=== PATIENT | female | born 1990 | race Caucasian/White ===

== ENCOUNTER 2020-06-17 08:47 | Outpatient (REF) | payer OTHER, SELFPAY ==
[2020-06-17 14:16] LABS: CT PCR NOT DETECTED (Not Detect.); NG PCR NOT DETECTED (Not Detect.)
[2020-06-18 09:31] LABS: BV Int Neg Control Negative (Negative); BV Int Pos Control Positive (Positive)
== END 2020-06-17 08:48 | disposition home or self-care (01) ==
LOC: HO.LAB 08:47
PROVIDERS: PCP Pediatrics; Visit Provider Obstetrics & Gynecology
DX: N76.0 Acute vaginitis (principal); B96.89 Other specified bacterial agents as the cause of diseases classified elsewhere; R87.610 Atypical squamous cells of undetermined significance on cytologic smear of cervix (ASC-US); R87.810 Cervical high risk human papillomavirus (HPV) DNA test positive
CPT/HCPCS: 87480; 87491; 87510; 87591; 87660

== ENCOUNTER 2020-07-17 08:51 | Outpatient (REF) | payer OTHER, SELFPAY | END 2020-07-17 08:52 | disposition home or self-care (01) | LOC: HO.LAB 08:51 | PROVIDERS: PCP Nurse Practitioner Family; Visit Provider Obstetrics & Gynecology | DX: R87.610 Atypical squamous cells of undetermined significance on cytologic smear of cervix (ASC-US) (principal); R87.810 Cervical high risk human papillomavirus (HPV) DNA test positive; N76.0 Acute vaginitis; B96.89 Other specified bacterial agents as the cause of diseases classified elsewhere; F17.200 Nicotine dependence, unspecified, uncomplicated | CPT/HCPCS: 57454; 81025; 88305 ==

== ENCOUNTER → 2020-08-05 12:45 | Outpatient (BNVA) | payer OTHER, SELFPAY | PROVIDERS: PCP Nurse Practitioner Family; Visit Provider Obstetrics & Gynecology | DX: Z76.89 Persons encountering health services in other specified circumstances (principal) ==

== ENCOUNTER 2020-11-22 10:44 | Emergency (ER) | payer MEDICAID, SELFPAY ==
--- NOTE | ~2020-11-22 | US_ITS ---
EXAMINATION: OBSTETRICAL ULTRASOUND, FIRST TRIMESTER HISTORY: 30-year-old with the amenorrhea Suprapubic pain LMP: 09/21/2020 COMPARISON: None in this TECHNIQUE: Real time transabdominal imaging with color and M-mode Doppler. FINDINGS: A single, intrauterine gestational sac with the mean sac diameter of 1.1 cm c/w 5.6wks is noted. Normal yolk sac. No definitive embryonic pole. This can be consistent with GA. Both maternal ovaries are seen and appear normal. Left ovary contains an anechoic cyst 3.5 x 2.8 x 2.4 cm. GESTATIONAL AGE: 1. GA from LMP: 8.6 wks 2. GA from AUA: 5.6 wks ESTIMATED DATE OF DELIVERY: 1. MAURICE from LMP: 06/28/2021 2. MAURICE from AUA: 07/19/2021 US/US OB pelvic and transvaginal IMPRESSION: 1. Single intrauterine gestational sac 2. Mean sac diameter is consistent with 5.6 weeks of gestation 3. No visible embryonic pole 4. Normal yolk sac 5. Normal ovaries. No free fluid in the cul-de-sac Thank you very much for this referral.
[2020-11-22 12:07] VITALS: BP 128/72; PULSE 90; RESP 18; TEMP 36.4; O2SAT 96
[2020-11-22 13:38] LABS: MANUAL DIFF FLAG NO
[2020-11-22] MEDS: Acetaminophen 325 MG TABLET 975 MG PO (13:43)
[2020-11-22 13:45] LABS: Glucose Urine UA NEG (NEG); Leukocyte Esterase Urine NEG (NEG); Nitrite Urine NEG (NEG); Specific Gravity - Urine 1.025 (1.005-1.025); Urine Blood NEG (NEG); Urine Ketones NEG (NEG); Urine Protein NEG (NEG-TRACE)
[2020-11-22 13:47] LABS: Basophils Percent Auto 0.3 % (0-2); Eosinophils Absolute Auto 0.3 X10*3/uL (0.0-0.4); Eosinophils Percent Auto 3.4 % (0-4); Hematocrit 41.2 % (37-47); Hemoglobin 13.4 g/dl (12.0-16.0); Imm Gran Abs Auto 0.02 X10*3/uL (0.00-0.03); Imm Gran Pct Auto 0.2 % (0.0-0.4); Lymphocytes Absolute Auto 1.5 X10*3/uL (1.2-4.9); Lymphocytes Percent Auto 16.5 % (20-40); Mean Corpuscular HGB Conc 32.5 g/dl (31.0-35.0); Mean Corpuscular Hemoglobin 30.1 pg (27.0-33.0); Mean Corpuscular Volume 92.6 fL (80-98); Mean Platelet Volume 9.8 fL (9.4-12.3); Monocytes Absolute Auto 0.4 X10*3/uL (0.1-1.2); Monocytes Percent Auto 4.1 % (2-11); Neutrophils Absolute Auto 6.8 X10*3/uL (2.0-8.3); Neutrophils Percent Auto 75.5 % (45-73); Platelet Count 376 X10*3/uL (160-400); Red Blood Count 4.45 X10*6/uL (4.20-5.50); Red Cell Distribution Width 12.2 % (11.0-16.0)
[2020-11-22 13:49] LABS: UPreg QC Valid YES; Urine Pregnancy POSITIVE (NEGATIVE)
[2020-11-22 13:50] LABS: Appearance Urine CLEAR; Color Urine YELLOW; Prothrombin Time 12.1 SEC (10.8-13.0)
[2020-11-22 14:16] LABS: Alanine Aminotransferase 22 U/L (0-31); Albumin Level 4.6 g/dL (3.5-5.0); Alkaline Phosphatase 64 U/L (39-117); Aspartate Amino Transferase 20 U/L (5-31); Bilirubin Direct 0.2 mg/dL (0.0-0.5); Bilirubin Total 0.6 mg/dL (0.0-1.0); Magnesium 2.2 mg/dL (1.6-2.6); Total Protein 7.7 g/dL (6.5-8.0)
[2020-11-22 14:18] LABS: Alanine Aminotransferase 22 U/L (0-31); Albumin Level 4.5 g/dL (3.5-5.0); Alkaline Phosphatase 62 U/L (39-117); Anion Gap 16 (12-20); Aspartate Amino Transferase 20 U/L (5-31); Bilirubin Total 0.6 mg/dL (0.0-1.0); Blood Urea Nitrogen 9 mg/dL (9-16); Carbon Dioxide 19 mmol/L (22-29); Chloride 106 mmol/L (96-108); Creatinine Clr Calc Pharmacy 157.3; Estimated Glomerular Filt Rate > 60; Glucose Random 84 mg/dL (60-115); Sodium 136 mmol/L (135-145); Total Protein 7.7 g/dL (6.5-8.0)
[2020-11-22 14:25] LABS: HCG Quantitative 6709 mIU/mL
--- NOTE | 2020-11-22 14:52 | ED_ITS ---
HPI - Female Genitourinary General Chief complaint: Fall Stated complaint: FALL Time Seen by Provider: 11/22/20 12:30 Source: patient Mode of arrival: ambulatory Limitations: no limitations History of Present Illness HPI Narrative: 30-year-old female with a past medical history of PCOS, PAM I cervical intraepithelial neoplasm I, ASCUS with positive high risk HPV and asthma presenting to the ED with complaints of suprapubic abdominal pain/coccyx pain with associated slight vaginal bleed after a fall yesterday. Reports she fell down approximately 12-14 steps although she did not hit her head or lose co nsciousness. Is not on any blood thinners. Reports that she has not had a period since August although reports that this is normal for her due to PCOS although she has been having suprapubic abdominal tenderness therefore she took of urine test at home 2 days ago and tested positive. Reports that she has taken test in the past and has never been positive. Denies any head injury, neck injury, back pain, neck stiffness, fevers, nausea/vomiting, chest pain, shortness of breath, dyspnea on exertion, orthopnea, lower extremity edema, palpitations, calf tenderness, hematuria, diarrhea, constipation or any other symptoms complaints or concerns at this time. MD elicited complaint: vaginal bleeding and pelvic pain Onset (ago): day(s) (2 days ) Location of symptoms: suprapubic and pelvis Severity: mild Female Urogenital Radiation: Non-Radiating Severity scale (1-10): 5 Quality of pain: cramping and aching Consistency: intermittent Vaginal discharge: none Vaginal bleeding: scant, bright red and other (Patient reports it is a slight bleed she is not having any clots no tissue was passed and she is not using any pads or tampons) Exacerbating factors: none Relieving factors: none Sexual activity: Yes Patient : Yes Possible : at home test positive Date of Last Menstrual Period: 09/21/20 Related Data Home Medications Medication Instructions Recorded Confirmed loratadine 10 mg tablet 10 mg PO DAILY 06/17/20 08/05/20 norethindrone acetate 1 mg-ethinyl 1 tab PO DAILY 06/17/20 08/05/20 estradiol 20 mcg tablet Previous Rx's Medication Instructions Recorded metronidazole 500 mg tablet 500 mg PO BID 7 Days #14 tab 06/17/20 acetaminophen [Tylenol Extra 1,000 mg PO QID PRN #14 tab 11/22/20 Strength] [id number] 1 cap PO DAILY #30 cap 11/22/20 [One-A-Day -1] Allergies Allergy/AdvReac Type Severity Reaction Status Date / Time blueberry Allergy Anaphylaxis Verified 11/22/20 12:07 hamilton Allergy Anaphylaxis Verified 11/22/20 12:07 strawberry Allergy Anaphylaxis Verified 11/22/20 12:07 Review of Systems Review of Systems: Constitutional : No changes in activity, No lethargy, No recent prior head injury, No agitation, No Fever, No Chills ENT/Mouth : No Ear Pain, No Nasal discharge/drainage Eyes: No Eye Pain, No Swelling, No Redness, No Foreign Body, No Vision Changes Cardiovascular : No Chest Pain, No SOB Respiratory : No Cough Gastrointestinal : No Nausea, No Vomiting, No abdominal Pain Genitourinary : + irregular bleeding/pelvic pain, No Dysuria, No Urinary Frequency, No vaginal discharge, no hematuria Musculoskeletal : + joint pain, No neck stiffness, No back pain/injury Skin : No lacerations Neuro : No unsteady gait, No Paresthesias, No Loss of Consciousness, No altered mental status, No Headache Yes all other systems are reviewed and are negative [facility] Past Medical History Attestation statement: The following information was validated with the patient. Medical History Asthma PAM I (cervical intraepithelial neoplasia I) PCOS (polycystic ovarian syndrome) Date of Last Menstrual Period: 09/21/20 Social History Social History Alcohol intake: never Smoking Status: Never smoker Smoked in Last 30 Days: No Use of substances other than those prescribed or required for medical reasons: No Advance Directives: Yes Advance Directives Information Provided: No Advance Directives on File: No Sexual orientation: Straight/Heterosexual Gender identity: female Physical Exam Vital Signs: Vital Signs: Last Vital Signs Temp 98.5 F 11/22/20 15:32 Pulse 97 11/22/20 15:32 Resp 16 11/22/20 15:32 BP 144/99 H 11/22/20 15:32 Pulse Ox 99 11/22/20 15:32 Body Mass Index 0.4 vital signs have been reviewed as normal and appeared to be correct. Blood pressure normal. Heart rate normal. Respiration rate normal. Temperature normal. Oxygen saturation normal. Appearance: Alert. Oriented X3. No acute distress. Head: Normal external exam. Normocephalic. Atraumatic. No Palafox signs noted. No raccoon eyes noted Eyes: PERRLA. EOMI. Conjunctiva and sclera normal. Eyelids normal. ENT: EAC normal. TM's Normal. Pharynx normal. Uvula midline. Moist mucous membranes. No trismus noted. No drooling noted. No muffled voice noted. Neck: Normal inspection. Neck supple. FROM. No adenopathy. Thyroid Normal. No meningeal signs. No neck mass noted. CVS: Normal heart rate and rhythm. Heart sound normal. No murmurs noted. Pulses normal throughout. Respiratory: No respiratory distress. Painless inspiration. Breath sounds normal. No wheezes/rales/rhonchi noted. Chest nontender. No accessory muscle usage noted or decreased air movement noted. Abdomen: Soft and mild suprapubic tenderness. Bowel sounds normal in all 4 quadrants. No distention noted. No organomegaly noted. No visible injury noted. : Supervised by PCT. Normal external appearance of urethra. No lesions/lacerations or discharge or tenderness noted. Speculum exam normal ap pearance/palpation of vagina normal. No abnormal vaginal discharge noted. Otherwise no vaginal erythema. No foreign bodies noted. No vaginal laceration/lesions or active bleeding noted. No tissue present in vagina. No vaginal mass noted. No vaginal swelling noted. No vaginal tenderness noted. Normal appearance of cervix. Normal palpation of cervix. Cervical os is closed. No abnormal cervical discharge noted. No cervical lesion/mass. No Bartholin cyst noted. No cervical motion tenderness noted. Negative chandelier sign. Normal bimanual exam. Uterine size normal. Bladder normal to palpation. Uterine consistency normal. Normal cervical palpation. Uterine mobility normal. Uterine shape normal. Normal adnexa. Normal rectovaginal exam. Back: Mild tenderness to coccyx region. No signs of infection noted. No CVA tenderness. Full range of motion noted. No obvious deformities. No signs of trauma. No mid thoracic/lumbar tenderness step-offs or deformities noted. No p araspinous musculature noted. No rashes/lesion/induration/fluctuance or signs infection noted. No lacerations/ecchymosis or abrasions noted. Patient has a normal steady gait. Skin: Skin warm and dry. Normal skin color. Normal skin turgor. No rashes/lesions/lacerations noted. Extremities: No lower extremity edema. No calf tenderness is noted. Extremities exhibit normal range of motion. Extremities nontender. Neuro: Oriented X 3. No motor deficit. No sensory deficit. Reflexes normal. Course Course Course Narrative: - labs obtained and patient all within normal limits. Serum quant appropriately elevated at 6709 - urine is positive no evidence of UTI. - patient has pending gonorrhea/chlamydia/bacterial vaginosis/yeast/Trichomonas cultures although on exam it does not appear this way therefore will not be treated for any STDs or bacterial vaginosis/Trichomonas or yeast also patient denies any thoughts of STD. - patient does not have any active vaginal bleeding at this time - she had a 1st trimester ultrasound which revealed intrauterine with a gestational age of 5.6 weeks no visible embryonic pole patient has a normal yolk sac and normal ovaries and no free fluid noted. - therefore consulted with Dr. Tao who reported that the patient can follow-up with them as an outpatient and she will flag her for follow-up ultrasound. Patient understood and agreed this plan as she wants to obtain care here at [facility]. Will DC home with Tylenol and vitamins and to return if any new or worsening symptoms. Patient's agrees with this plan. MDM - Female Genitourinary MDM Narrative Medical decision making narrative: 12:35pm - 30-year-old female presenting to the ED with complaints of a positive test with associated suprapubic abdominal pain. Also reports coccyx pain after she had a mechanical fall yesterday down some steps. Denies head injury or loss of consciousness. Denies being on any blood thinners. - on exam patient is alert oriented x3. Not in any acute distress. No signs of trauma anywhere in the body. No midcervical tenderness step-offs or deformities noted. Patient is neuro intact bilaterally distally in all 4 extremities. No mid thoracic/lumbar tenderness step-offs or deformities noted. Patient has a normal steady gait. Mild tenderness to coccyx region no signs of infection or trauma. Mild suprapubic abdominal tenderness. On vaginal exam patient has no abnormal vaginal discharge. No active vaginal bleeding noted at this time. - Plan: Labs, UA, UHCG, serum quant, gonorrhea/chlamydia culture, bacterial vaginosis culture, Trichomonas culture and yeast culture although patient denies any thoughts of STDs. Will not treat for STDs at this time. Patient also refusing all imaging CT scan of brain/cervical spine/thoracic/lumbar region/coccyx due to she reports she does not want to radiate the fetus if she is due to this is her 1st and she does not have any pain anywhere else except for suprapubic and coccyx region although she still does not want x-ray of her coccyx. Will obtain 1st trimester ultrasound provide 975 mg of Tylenol then re-evaluate. Medical Records Attestation: I reviewed the patient's medical records. Lab Data Attestation: I reviewed the patient's lab results. Result diagrams: 11/22/20 13:33 11/22/20 13:33 Labs: Lab Results 11/22/20 11/22/20 11/22/20 Range/Units 13:32 13:33 13:33 WBC 9.0 (4.8-10.8) X10*3/uL RBC 4.45 (4.20-5.50) X10*6/uL Hgb 13.4 (12.0-16.0) g/dl Hct 41.2 (37-47) % MCV 92.6 (80-98) fL MCH 30.1 (27.0-33.0) pg MCHC 32.5 (31.0-35.0) g/dl RDW 12.2 (11.0-16.0) % Plt Count 376 (160-400) X10*3/uL MPV 9.8 (9.4-12.3) fL Immature Gran % (Auto) 0.2 (0.0-0.4) % Neut % (Auto) 75.5 H (45-73) % Lymph % (Auto) 16.5 L (20-40) % [place] % (Auto) 4.1 (2-11) % Eos % (Auto) 3.4 (0-4) % Baso % (Auto) 0.3 (0-2) % Lymph # (Auto) 1.5 (1.2-4.9) X10*3/uL [place] # (Auto) 0.4 (0.1-1.2) X10*3/uL Eos # (Auto) 0.3 (0.0-0.4) X10*3/uL Baso # (Auto) 0.0 (0.0-0.2) X10*3/uL Abs Immat Gran (auto) 0.02 (0.00-0.03) X10*3/uL Absolute Neuts (auto) 6.8 (2.0-8.3) X10*3/uL Absolute Nucleated RBC 0.000 (0.0-0.012) X10*3/uL Nucleated RBC % (auto) 0.0 (0.0-0.2) /100WBC PT 12.1 (10.8-13.0) SEC INR 1.0 (0.9-1.1) Sodium (135-145) mmol/L Potassium (3.3-5.1) mmol/L Chloride (96-108) mmol/L Carbon Dioxide (22-29) mmol/L Anion Gap (12-20) BUN (9-16) mg/dL Creatinine (0.5-1.4) mg/dL Estim Creat Clear Calc Estimated GFR Random Glucose (60-115) mg/dL Calcium (8.4-10.2) mg/dL Magnesium (1.6-2.6) mg/dL Total Bilirubin (0.0-1.0) mg/dL Direct Bilirubin (0.0-0.5) mg/dL AST (5-31) U/L ALT (0-31) U/L Alkaline Phosphatase (39-117) U/L Total Protein (6.5-8.0) g/dL Albumin (3.5-5.0) g/dL Beta HCG, Quant mIU/mL Urine Color Urine Appearance Urine pH (5.0-8.0) Ur Specific [place] (1.005-1.025) Urine Protein (NEG-TRACE) MG/DL Urine Glucose (UA) (NEG) MG/DL Urine Ketones (NEG) MG/DL Urine Blood (NEG) Urine Nitrite (NEG) Ur Leukocyte Esterase (NEG) Urine Test POSITIVE H (NEGATIVE) 11/22/20 11/22/20 11/22/20 Range/Units 13:33 13:33 13:33 WBC (4.8-10.8) X10*3/uL RBC (4.20-5.50) X10*6/uL Hgb (12.0-16.0) g/dl Hct (37-47) % MCV (80-98) fL MCH (27.0-33.0) pg MCHC (31.0-35.0) g/dl RDW (11.0-16.0) % Plt Count (160-400) X10*3/uL MPV (9.4-12.3) fL Immature Gran % (Auto) (0.0-0.4) % Neut % (Auto) (45-73) % Lymph % (Auto) (20-40) % [place] % (Auto) (2-11) % Eos % (Auto) (0-4) % Baso % (Auto) (0-2) % Lymph # (Auto) (1.2-4.9) X10*3/uL [place] # (Auto) (0.1-1.2) X10*3/uL Eos # (Auto) (0.0-0.4) X10*3/uL Baso # (Auto) (0.0-0.2) X10*3/uL Abs Immat Gran (auto) (0.00-0.03) X10*3/uL Absolute Neuts (auto) (2.0-8.3) X10*3/uL Absolute Nucleated RBC (0.0-0.012) X10*3/uL Nucleated RBC % (auto) (0.0-0.2) /100WBC PT (10.8-13.0) SEC INR (0.9-1.1) Sodium 136 (135-145) mmol/L Potassium 5.0 (3.3-5.1) mmol/L Chloride 106 (96-108) mmol/L Carbon Dioxide 19 L (22-29) mmol/L Anion Gap 16 (12-20) BUN 9 (9-16) mg/dL Creatinine 0.71 (0.5-1.4) mg/dL Estim Creat Clear Calc 157.3 Estimated GFR > 60 Random Glucose 84 (60-115) mg/dL Calcium 9.0 (8.4-10.2) mg/dL Magnesium 2.2 (1.6-2.6) mg/dL Total Bilirubin 0.6 0.6 (0.0-1.0) mg/dL Direct Bilirubin 0.2 (0.0-0.5) mg/dL AST 20 20 (5-31) U/L ALT 22 22 (0-31) U/L Alkaline Phosphatase 64 62 (39-117) U/L Total Protein 7.7 7.7 (6.5-8.0) g/dL Albumin 4.6 4.5 (3.5-5.0) g/dL Beta HCG, Quant 6709 mIU/mL Urine Color YELLOW Urine Appearance CLEAR Urine pH 6.0 (5.0-8.0) Ur Specific [place] 1.025 (1.005-1.025) Urine Protein NEG (NEG-TRACE) MG/DL Urine Glucose (UA) NEG (NEG) MG/DL Urine Ketones NEG (NEG) MG/DL Urine Blood NEG (NEG) Urine Nitrite NEG (NEG) Ur Leukocyte Esterase NEG (NEG) Urine Test (NEGATIVE) Imaging Data 1st trimester ultrasound: Attestation: I personally reviewed and interpreted this imaging study as follows: Radiologist's impression: FINDINGS: A single, intrauterine gestational sac with the mean sac diameter of 1.1 cm c/w 5.6wks is noted. Normal yolk sac. No definitive embryonic pole. This can be consistent with GA. Both maternal ovaries are seen and appear normal. Left ovary contains an anechoic cyst 3.5 x 2.8 x 2.4 cm. GESTATIONAL AGE: 1. GA from LMP: 8.6 wks 2. GA from AUA: 5.6 wks ESTIMATED DATE OF DELIVERY: 1. MAURICE from LMP: 06/28/2021 2. MAURICE from AUA: 07/19/2021 US/US OB pelvic and transvaginal IMPRESSION: 1. Single intrauterine gestational sac 2. Mean sac diameter is consistent with 5.6 weeks of gestation 3. No visible embryonic pole 4. Normal yolk sac 5. Normal ovaries. No free fluid in the cul-de-sac Thank you very much for this referral. Discharge Plan Discharge Clinical Impression: , Vaginal bleeding affecting early , Threatened Patient Disposition: Home, Self-Care Instructions: Threatened Miscarriage (ED), (ED), First Trimester (ED) Additional Instructions: You have pending lab resolved any are positive you will be contacted. Congratulations on your . Return if you have any return bleeding or any worsening abdominal pain or any other symptoms complaints or concerns at this time. Follow-up with OBGYN doctor Aislinn. Prescriptions: New acetaminophen [Tylenol Extra Strength] 500 mg tablet 1,000 mg PO QID PRN (Reason: fever or pain) Qty: 14 RF: 0 One-A-Day -1 27 mg iron- 800 mcg-235 mg capsule 1 cap PO DAILY Qty: 30 RF: 1 No Action norethindrone ac-eth estradiol 1-20 mg-mcg tablet 1 tab PO DAILY RF: 0 loratadine 10 mg tablet 10 mg PO DAILY RF: 0 metronidazole [Flagyl] 500 mg tablet 500 mg PO BID 7 Days Qty: 14 RF: 0 Referrals: Nadya Tao MD [Physician] - 2 days Stand Alone Forms: Work/School Release Print Language: Slovak
[2020-11-22 15:32] VITALS: BP 144/99; PULSE 97; RESP 16; TEMP 36.9; O2SAT 99
[2020-11-23 03:30] LABS: CT PCR NOT DETECTED (Not Detect.); NG PCR NOT DETECTED (Not Detect.)
[2020-11-23 12:35] LABS: BV Int Neg Control Negative (Negative); BV Int Pos Control Positive (Positive)
== END 2020-11-22 15:54 | disposition home or self-care (01) ==
PROVIDERS: Physician Assistant Medical; Emergency Provider Emergency Medicine; PCP Nurse Practitioner Family
DX: O20.0 Threatened abortion (principal); O26.891 Other specified pregnancy related conditions, first trimester; G89.11 Acute pain due to trauma; M53.3 Sacrococcygeal disorders, not elsewhere classified; R10.2 Pelvic and perineal pain; Z3A.01 Less than 8 weeks gestation of pregnancy
CPT/HCPCS: 36415; 76801; 76817; 80053; 80076; 81003; 81025; 82248; 83735; 84702; 85025; 85610; 87480; 87491; 87510; 87591; 87660; 99284

== ENCOUNTER 2020-12-03 13:54 | Outpatient (REF) | payer MEDICAID, SELFPAY ==
--- NOTE | ~2020-12-03 | US_ITS ---
EXAMINATION: FIRST TRIMESTER OB ULTRASOUND CLINICAL INFORMATION: Check viability COMPARISON: Previous exam 11/22/2020 TECHNIQUE: Transabdominal first trimester OB ultrasound FINDINGS: The uterus is normal in size and shape. There is an intrauterine gestational sac. [place]-rump length measures 0.5 cm suggesting gestational age of 6 weeks 2 days with estimated date of delivery of 07/27/2021. heart rate is 139 bpm. There is a yolk sac. The right maternal ovary is normal and measures 2.7 x 2.4 x 2 cm. The left maternal ovary measures 3.5 x 2.5 x 3 cm. There are 2 left ovarian cysts. There is a 2.2 x 1.5 x 1.6 cm complex cyst with thick echogenic wall and a 2.3 x 1.3 x 1.4 cm simple cyst. There is no fluid in the pelvis. US/US OB pelvic and transvaginal IMPRESSION: Single viable intrauterine . From today's measurements gestational age is estimated at 6 weeks 2 days with estimated date of delivery of 07/27/2021.
[2020-12-04 07:55] LABS: HBS Num1 10.25 mIU/mL (0-7.99)
[2020-12-04 08:58] LABS: HBS Num2 11.67 mIU/mL (0-7.99); HBS Num3 9.97 mIU/mL (0-7.99); ~Hepatitis B Surface Antibody GRAYZONE (Nonreactive)
[2020-12-04 13:38] LABS: Rubella IgG Antibody <0.90 Index
[2020-12-05 08:56] LABS: Mumps Virus IgG Antibody <9.00 AU/mL; Rubeola IgG (Measles) <13.50 AU/mL
[2020-12-05 22:36] LABS: TS Negative Control Passed; TS Panel A 0; TS Panel B 0; TS Positive Control Passed; TSpotTB Negative (SeeBelow)
== END 2020-12-03 13:55 | disposition home or self-care (01) ==
LOC: HO.US 13:54
PROVIDERS: Internal Medicine; Visit Provider Obstetrics & Gynecology
DX: O36.80X0 Pregnancy with inconclusive fetal viability, not applicable or unspecified (principal); Z3A.01 Less than 8 weeks gestation of pregnancy
CPT/HCPCS: 36415; 76801; 76817; 86481; 86706; 86735; 86762; 86765

== ENCOUNTER → 2020-12-06 15:24 | Outpatient (BNVA) | payer MEDICAID, SELFPAY | PROVIDERS: Visit Provider Obstetrics & Gynecology ==

== ENCOUNTER → 2020-12-30 10:05 | Outpatient (BNVA) | payer MEDICAID, SELFPAY | PROVIDERS: Visit Provider Obstetrics & Gynecology | DX: Z34.91 Encounter for supervision of normal pregnancy, unspecified, first trimester (principal); Z3A.09 9 weeks gestation of pregnancy | CPT/HCPCS: 99212 ==

== ENCOUNTER 2021-01-07 12:20 | Outpatient (REF) | payer MEDICAID, SELFPAY ==
[2021-01-07 14:29] LABS: Hematocrit 35.4 % (37-47); Hemoglobin 11.8 g/dl (12.0-16.0); Mean Corpuscular HGB Conc 33.3 g/dl (31.0-35.0); Mean Corpuscular Hemoglobin 29.9 pg (27.0-33.0); Mean Corpuscular Volume 89.6 fL (80-98); Platelet Count 416 X10*3/uL (160-400); Red Blood Count 3.95 X10*6/uL (4.20-5.50); Red Cell Distribution Width 12.1 % (11.0-16.0); White Blood Count 9.8 X10*3/uL (4.8-10.8)
[2021-01-07 14:55] LABS: Glucose 1 Hour PP 50gm Dose 124 mg/dL (60-140)
[2021-01-07 16:05] LABS: Amphetamine Screen Urine Not Detected (Not Detect); Barbiturates, Urine Not Detected (Not Detect); Benzodiazepines Screen Urine Not Detected (Not Detect); Cannabinoid Screen Urine Not Detected (Not Detect); Cocaine Screen Urine Not Detected (Not Detect); Opiate Screen Urine Not Detected (Not Detect); Phencyclidine Screen Urine Not Detected (Not Detect)
[2021-01-08 07:38] LABS: HIV AB/AG Nonreactive (Nonreactive); HIV Num 1 0.05 S/CO (0.00-0.99); ~HepC Num1 0.08 S/CO (0.00-0.79); ~Hepatitis C Antibody Nonreactive (Nonreactive)
[2021-01-08 07:47] LABS: HBsAGNum1 0.21 S/CO (0.00-0.99); Hepatitis B Surface Antigen Negative (Negative)
[2021-01-08 07:55] LABS: Syphilis Screen Nonreactive (Nonreactive)
[2021-01-08 21:36] LABS: Rubella IgG Antibody <0.90 Index
[2021-01-09 13:01] LABS: Hemoglobin 11.9 g/dL (11.7-15.5); MCH 31.1 pg (27.0-33.0); MCV 88.8 fL (80.0-100.0); RBC 3.83 Million/uL (3.80-5.10); RDW 12.6 % (11.0-15.0)
== END 2021-01-07 12:21 | disposition home or self-care (01) ==
LOC: HO.LAB 12:20
PROVIDERS: PCP Nurse Practitioner Family; Visit Provider Advanced Practice Midwife
DX: Z32.01 Encounter for pregnancy test, result positive (principal)
CPT/HCPCS: 80307; 83020; 85014; 85018; 85027; 85041; 86762; 86780; 86787; 86803; 86850; 86900; 86901; 87086; 87340; 87389

== ENCOUNTER 2021-01-13 09:04 | Outpatient (REF) | payer MEDICAID, SELFPAY ==
[2021-01-14 02:37] LABS: CT PCR NOT DETECTED (Not Detect.); NG PCR NOT DETECTED (Not Detect.)
== END 2021-01-13 09:05 | disposition home or self-care (01) ==
LOC: HO.LAB 09:04
PROVIDERS: PCP Nurse Practitioner Family; Visit Provider Advanced Practice Midwife
DX: Z01.419 Encounter for gynecological examination (general) (routine) without abnormal findings (principal); O99.281 Endocrine, nutritional and metabolic diseases complicating pregnancy, first trimester; O99.891 Other specified diseases and conditions complicating pregnancy; E28.2 Polycystic ovarian syndrome; N87.0 Mild cervical dysplasia; Z79.899 Other long term (current) drug therapy; Z87.891 Personal history of nicotine dependence; Z3A.12 12 weeks gestation of pregnancy; N87.9 Dysplasia of cervix uteri, unspecified
CPT/HCPCS: 87491; 87591; 88142; 99212

== ENCOUNTER 2021-01-17 09:36 | Outpatient (REF) | payer MEDICAID, SELFPAY ==
--- NOTE | ~2021-01-17 | US_ITS ---
EXAMINATION: OBSTETRICAL ULTRASOUND, FIRST TRIMESTER HISTORY: 30-year-old at 12.5 weeks of gestation NT screening COMPARISON: 12/03/2020 TECHNIQUE: Real time transabdominal imaging with color and M-mode Doppler. FINDINGS: A single, live IUP CRL of 70.4 mm c/w 13.2wks is noted. Heart Rate: 155 beats per minute. Normal yolk sac seen. NT was 1.85.mm. NB Present The embryo appears sonographically wnl for this GA. Both maternal ovaries are seen and appear normal. GESTATIONAL AGE: 1. Established GA: 12.5 wks 2. GA from AUA: 13.2 wks ESTIMATED DATE OF DELIVERY: 1. Established MAURICE: 07/27/2021 2. MAURICE from A: 07/23/2021 US/US OB 1T nuc measure IMPRESSION: 1. A single live IUP 2. Size equals dates 3. NT of 1.85 mm MFM Consultation: I reviewed the ultrasound findings along with significance of NT measurement. The NT of less than 3mm is generally reassuring. However, the sensitivity for T21 detection is only 60%. I reviewed the availability of serum aneuploidy screening which includes cell-free DNA and placental protein based tests. I discussed the sensitivity, false-positive rate, and other limitations associated with each test. I also reviewed the availability of invasive diagnostic tests that are associated small but definite risk of miscarriage. We also reviewed the differences between screening tests and diagnostic tests. After our discussion, she opted for the First trimester screening that is based on cell-free DNA or non-invasive testing (NIPT). The result will be faxed to your office in approximately 7 days. A follow up at 18 weeks for survey has been scheduled. Thank you very much for this referral. Total time 30 minutes. The time spent was devoted to counseling the patient about the disease and diagnosis, coordinating care including reviewing her records, pertinent lab data and studies, as well as discussing diagnostic evaluation and workup, plan therapeutic interventions and future disposition of care. This includes any additional research needed to obtain further information in formulating the plan of care of this patient. This note was generated with a voice recognition program. Please excuse any errors which may have been overlooked during my review of this note. Sometimes these errors may affect the content or meaning of a given sentence.
== END 2021-01-17 09:37 | disposition home or self-care (01) ==
LOC: HO.US 09:36
PROVIDERS: Visit Provider Advanced Practice Midwife
DX: Z34.90 Encounter for supervision of normal pregnancy, unspecified, unspecified trimester (principal); Z36.82 Encounter for antenatal screening for nuchal translucency
CPT/HCPCS: 76813

== ENCOUNTER → 2021-02-14 14:21 | Outpatient (BNVA) | payer MEDICAID, SELFPAY | PROVIDERS: Visit Provider Advanced Practice Midwife | DX: O99.282 Endocrine, nutritional and metabolic diseases complicating pregnancy, second trimester (principal); O26.892 Other specified pregnancy related conditions, second trimester; R35.0 Frequency of micturition; Z3A.16 16 weeks gestation of pregnancy | CPT/HCPCS: 81003; 99212 ==

== ENCOUNTER 2021-02-28 13:54 | Outpatient (REF) | payer MEDICAID, SELFPAY ==
--- NOTE | ~2021-02-28 | US_ITS ---
EXAMINATION: US OBSTETRICAL CLINICAL INFORMATION: 30-year-old at 18.5 weeks of gestation Screening for anomaly COMPARISON: 01/17/2021 TECHNIQUE: Real-time transabdominal ultrasound was performed using C1-5 megahertz transducer. FINDINGS: A single, active, fetus is seen in transverse presentation. The placenta is posterior without previa, and the amniotic fluid volume is wnl. MEASUREMENTS: 1. Biparietal Diameter: 4.5 cm; 19.5 wks 2. Occipital Frontal Diameter: 5.9 cm 3. Head Circumference: 16.5 cm; 19.2 wks 4. Abdominal Circumference: 14.4 cm; 19.6 wks 5. Femur Length: 3.2 cm; 20.0 wks 6. Humerus Length: 3.0 cm; 19.5 wks 7. Tibia Length: 2.9 cm; 20.3 wks 8. Ulna Length: 2.8 cm; 20.3 wks 9. Lateral ventricle: 0.74 cm 10. Cerebellum: 2.0 cm; 20.4 wks 11. Cisterna Magna: 0.35 cm 12. Nuchal Fold: 4.14 mm 13. Heart Rate: 128 beats per minute Rt ovary: normal Lt ovary: normal Cervical length 3.2 cm on T/A. GESTATIONAL AGE: 1. Established GA: 18.5 wks 2. GA from [facility]: 19.5 wks ESTIMATED DATE OF DELIVERY: 1. Established MAURICE: 07/27/2021 2. MAURICE from [facility]: 07/20/2021 ANATOMY: The visualized anatomy includes but not limited to: 1. Cranium: Normal 2. Intracranial anatomy: cavum septum pellucidi, lateral ventricles, choroid plexus, cerebellum, posterior fossa, third and fourth ventricles. 3. face: orbits, lip/palate, profile, nasal bone 4. Heart: four-chamber view of the heart, ventricular septum, foramen ovale, pulmonary vein, left and right outflow tracts, three-vessel view, 3 vessel trachea view, aortic and ductal arches, situs.. 5. Diaphragm: Normal 6. Abdominal wall: Normal 7. Cord Insertion: Normal 8. Spine: Cervical, thoracic, lumbar, sacral. 9. Stomach: Normal size and shape 10. Right Kidney: Normal 11. Left Kidney: Normal 12. 3 vessel cord: Normal 13. Upper extremity: Open hands, fifth digit. 14. Lower extremity: Tibia, fibula, bilateral feet. 15. Bladder: Normal 16. Genitalia: Female, patient aware US/US OB /maternal detail IMPRESSION: 1. Single, living, intrauterine with appropriate biometry. 2. Normal survey DISCUSSION: I reviewed today's ultrasound findings. We discussed the limitations of ultrasound in diagnosing aneuploidy and other congenital abnormalities. I reviewed the differences between screening test and diagnostic test. Amniocentesis was discussed and declined. She was informed that the baseline incidence of congenital abnormalities is approximately 3-5%. Not all these conditions are diagnosable in utero. RECOMMENDATIONS: Follow-up when necessary Thank you for allowing me to participate in her care. Total time 30 minutes. The time spent was devoted to counseling the patient about the disease and diagnosis, coordinating care including reviewing her records, pertinent lab data and studies, as well as discussing diagnostic evaluation and workup, plan therapeutic interventions and future disposition of care. This includes any additional research needed to obtain further information in formulating the plan of care of this patient. This note was generated with a voice recognition program. Please excuse any errors which may have been overlooked during my review of this note. Sometimes these errors may affect the content or meaning of a given sentence.
== END 2021-02-28 13:55 | disposition home or self-care (01) ==
LOC: HO.US 13:54
PROVIDERS: Visit Provider Advanced Practice Midwife
DX: Z36.3 Encounter for antenatal screening for malformations (principal); Z34.92 Encounter for supervision of normal pregnancy, unspecified, second trimester; E28.2 Polycystic ovarian syndrome
CPT/HCPCS: 76811

== ENCOUNTER → 2021-03-14 14:16 | Outpatient (BNVA) | payer MEDICAID, SELFPAY | PROVIDERS: Visit Provider Advanced Practice Midwife | DX: O99.212 Obesity complicating pregnancy, second trimester (principal); Z36.3 Encounter for antenatal screening for malformations; N87.0 Mild cervical dysplasia; Z3A.20 20 weeks gestation of pregnancy | CPT/HCPCS: 99212 ==

== ENCOUNTER 2021-03-26 15:41 | Outpatient (REF) | payer MEDICAID, SELFPAY | END 2021-03-26 15:42 | disposition home or self-care (01) | LOC: HO.LAB 15:41 | PROVIDERS: Visit Provider Internal Medicine | DX: Z20.822 Contact with and (suspected) exposure to COVID-19 (principal) | CPT/HCPCS: U0003; U0005 ==

== ENCOUNTER → 2021-04-11 14:26 | Outpatient (BNVA) | payer MEDICAID, SELFPAY | PROVIDERS: Visit Provider Advanced Practice Midwife | DX: O21.9 Vomiting of pregnancy, unspecified (principal); Z3A.24 24 weeks gestation of pregnancy | CPT/HCPCS: 99212 ==

== ENCOUNTER → 2021-04-25 15:15 | Outpatient (BNVA) | payer MEDICAID, SELFPAY | PROVIDERS: Visit Provider Advanced Practice Midwife | DX: O99.212 Obesity complicating pregnancy, second trimester (principal); E66.9 Obesity, unspecified; Z3A.26 26 weeks gestation of pregnancy; Z87.42 Personal history of other diseases of the female genital tract | CPT/HCPCS: 99212 ==

== ENCOUNTER 2021-05-12 11:31 | Outpatient (REF) | payer MEDICAID, SELFPAY ==
[2021-05-12 13:31] LABS: Hematocrit 32.7 % (37-47); Mean Corpuscular HGB Conc 33.6 g/dl (31.0-35.0); Mean Corpuscular Hemoglobin 29.6 pg (27.0-33.0); Mean Corpuscular Volume 88.1 fL (80-98); Mean Platelet Volume 9.8 fL (9.4-12.3); Platelet Count 424 X10*3/uL (160-400); Red Blood Count 3.71 X10*6/uL (4.20-5.50); Red Cell Distribution Width 12.5 % (11.0-16.0); White Blood Count 9.5 X10*3/uL (4.8-10.8)
[2021-05-12 13:45] LABS: Glucose 1 Hour PP 50gm Dose 168 mg/dL (60-140)
[2021-05-12 14:14] LABS: Syphilis Screen Nonreactive (Nonreactive)
[2021-05-12 14:32] LABS: Appearance Urine HAZY; Color Urine YELLOW; Glucose Urine UA NEG (NEG); Leukocyte Esterase Urine NEG (NEG); Nitrite Urine NEG (NEG); Specific Gravity - Urine >= 1.030 (1.005-1.025); Urine Blood NEG (NEG); Urine Ketones 5 MG/DL (NEG); Urine Protein 2+ MG/DL (NEG-TRACE)
[2021-05-12 15:04] LABS: Bacteria Urine 1+ /LPF; RBC Urine 0-2 /HPF (0); Squamous Epithelial Cell Urine 3+ /LPF
== END 2021-05-12 11:32 | disposition home or self-care (01) ==
LOC: HO.LAB 11:31
PROVIDERS: PCP Nurse Practitioner Family; Visit Provider Advanced Practice Midwife
DX: O99.210 Obesity complicating pregnancy, unspecified trimester (principal); O26.899 Other specified pregnancy related conditions, unspecified trimester; R35.0 Frequency of micturition; Z87.42 Personal history of other diseases of the female genital tract
CPT/HCPCS: 36415; 81001; 85027; 86780; 87086

== ENCOUNTER → 2021-05-13 09:14 | Outpatient (BNVA) | payer MEDICAID, SELFPAY | PROVIDERS: Visit Provider Advanced Practice Midwife | DX: O99.343 Other mental disorders complicating pregnancy, third trimester (principal); O36.63X0 Maternal care for excessive fetal growth, third trimester, not applicable or unspecified; O99.810 Abnormal glucose complicating pregnancy; R73.09 Other abnormal glucose; Z13.31 Encounter for screening for depression; Z56.6 Other physical and mental strain related to work; Z3A.29 29 weeks gestation of pregnancy | CPT/HCPCS: 81003; 99212 ==

== ENCOUNTER 2021-05-16 08:56 | Outpatient (REF) | payer MEDICAID, SELFPAY ==
--- NOTE | ~2021-05-16 | US_ITS ---
EXAMINATION: OBSTETRICAL ULTRASOUND, Follow up HISTORY: 30-year-old at the 29.5 weeks of gestation High BMI Abnormal 1 hour GLT Size date discrepancy COMPARISON: 02/28/2021 TECHNIQUE: Real time transabdominal imaging with color and M-mode Doppler. PRESENTATION: Vertex PLACENTA LOCATION: Posterior without previa AMNIOTIC FLUID: PRINCE 14.2 MEASUREMENTS: 1. Biparietal Diameter: 7.5 cm; 30.2 wks 2. Head Circumference: 28.9 cm; 32.0 wks 3. Abdominal Circumference: 26.2 cm; 30.3 wks 4. Femur Length: 5.9 cm; 30.5 wks 5. Heart Rate: 149 beats per minute WEIGHT: EFW: 1601 grams (3 lbs 8 oz) -- 69 %. BIOPHYSICAL PROFILE: Motion: 2 Tone: 2 Breathin Amniotic Fluid: 2 Total score: 8/8 GESTATIONAL AGE: 1. Established GA: 29.5 wks 2. GA from AUA: 30.6 wks ESTIMATED DATE OF DELIVERY: 1. Established MAURICE: 07/27/2021 2. MAURICE from [facility]: 07/19/2021 US/US OB follow up IMPRESSION: 1. A single active fetus is in vertex presentation 2. Size equals dates 3. Reassuring biophysical profile with normal amniotic fluid volume She informs me that her 1 hour GLT was abnormal. 3 hour GTT is pending. I reviewed today's ultrasound findings as well as the limitations of ultrasound and estimating weights. If her 3 hour GTT is abnormal, she should return for further surveillance. No follow-up has been scheduled as of today. Thank you very much for this referral. Total time 30 minutes. The time spent was devoted to counseling the patient about the disease and diagnosis, coordinating care including reviewing her records, pertinent lab data and studies, as well as discussing diagnostic evaluation and workup, plan therapeutic interventions and future disposition of care. This includes any additional research needed to obtain further information in formulating the plan of care of this patient. This note was generated with a voice recognition program. Please excuse any errors which may have been overlooked during my review of this note. Sometimes these errors may affect the content or meaning of a given sentence.
== END 2021-05-16 08:57 | disposition home or self-care (01) ==
LOC: HO.US 08:56
PROVIDERS: PCP Nurse Practitioner Family; Visit Provider Advanced Practice Midwife
DX: O99.210 Obesity complicating pregnancy, unspecified trimester (principal); E66.9 Obesity, unspecified; O99.810 Abnormal glucose complicating pregnancy; O36.60X0 Maternal care for excessive fetal growth, unspecified trimester, not applicable or unspecified
CPT/HCPCS: 76816

== ENCOUNTER 2021-05-28 10:20 | Outpatient (REF) | payer MEDICAID, SELFPAY ==
[2021-05-28 11:13] LABS: Glucose Fasting 88 mg/dL (60-99)
[2021-05-28 12:29] LABS: Glucose 1 Hour 184 mg/dL
[2021-05-28 13:30] LABS: Glucose 2 Hour 157 mg/dL
[2021-05-28 14:34] LABS: Glucose 3 Hour 120 mg/dL
== END 2021-05-28 10:21 | disposition home or self-care (01) ==
LOC: HO.LAB 10:20
PROVIDERS: Visit Provider Advanced Practice Midwife
DX: O99.810 Abnormal glucose complicating pregnancy (principal); Z3A.00 Weeks of gestation of pregnancy not specified
CPT/HCPCS: 36415; 82951

== ENCOUNTER → 2021-05-30 14:59 | Outpatient (BNVA) | payer MEDICAID, SELFPAY | PROVIDERS: PCP Nurse Practitioner Family; Visit Provider Advanced Practice Midwife | DX: O99.343 Other mental disorders complicating pregnancy, third trimester (principal); F32.A Depression, unspecified; O24.419 Gestational diabetes mellitus in pregnancy, unspecified control; Z13.31 Encounter for screening for depression; Z3A.31 31 weeks gestation of pregnancy | CPT/HCPCS: 99212 ==

== ENCOUNTER → 2021-06-11 14:53 | Outpatient (BNVA) | payer MEDICAID, SELFPAY | PROVIDERS: PCP Nurse Practitioner Family; Visit Provider Obstetrics & Gynecology | DX: O24.410 Gestational diabetes mellitus in pregnancy, diet controlled (principal); Z3A.33 33 weeks gestation of pregnancy | CPT/HCPCS: 99211; 99212 ==

== ENCOUNTER 2021-06-12 | Outpatient (REF) | payer MEDICAID, SELFPAY | END 2021-06-12 00:01 | disposition home or self-care (01) | LOC: HO.US | PROVIDERS: PCP Nurse Practitioner Family; Visit Provider Obstetrics & Gynecology | DX: Z34.93 Encounter for supervision of normal pregnancy, unspecified, third trimester (principal); Z3A.33 33 weeks gestation of pregnancy | CPT/HCPCS: 59025; 99212 ==

== ENCOUNTER 2021-06-13 11:29 | Outpatient (REF) | payer MEDICAID, SELFPAY ==
--- NOTE | ~2021-06-13 | US_ITS ---
EXAMINATION: OBSTETRICAL ULTRASOUND, Follow up HISTORY: 30-year-old at the 33.5 weeks of gestation High BMI GDM A1 COMPARISON: 05/16/2021 TECHNIQUE: Real time transabdominal imaging with color and M-mode Doppler. PRESENTATION: Vertex PLACENTA LOCATION: Posterior without previa AMNIOTIC FLUID: PRINCE 10.7 cm MEASUREMENTS: 1. Biparietal Diameter: 8.2 cm; 32.6 wks 2. Head Circumference: 30.8 cm; 34.3 wks 3. Abdominal Circumference: 29.4 cm; 33.3 wks 4. Femur Length: 7.1 cm; 36.3 wks 5. Heart Rate: 160 beats per minute WEIGHT: EFW: 2387 grams (5 lbs 4 oz) -- 60 %. BIOPHYSICAL PROFILE: Motion: 2 Tone: 2 Breathin Amniotic Fluid: 2 Total score: 8/8 GESTATIONAL AGE: 1. Established GA: 33.5 wks 2. GA from AUA: 34.2 wks ESTIMATED DATE OF DELIVERY: 1. Established MAURICE: 07/27/2021 2. MAURICE from [facility]: 07/23/2021 US/US OB follow up IMPRESSION: 1. A single active fetus is in vertex presentation 2. Size equals dates, EFW corresponds to 16th percentile 3. Reassuring biophysical profile I reviewed today's ultrasound findings and gave her reassurance. She informs me that her glycemic control continues to be excellent on diet alone. Thank you very much for this referral. A follow-up growth in approximately 3-4 weeks is suggested that as long as she continues to do well on diet. (Not scheduled) Total time 20 minutes. The time spent was devoted to counseling the patient about the disease and diagnosis, coordinating care including reviewing her records, pertinent lab data and studies, as well as discussing diagnostic evaluation and workup, plan therapeutic interventions and future disposition of care. This includes any additional research needed to obtain further information in formulating the plan of care of this patient. This note was generated with a voice recognition program. Please excuse any errors which may have been overlooked during my review of this note. Sometimes these errors may affect the content or meaning of a given sentence.
== END 2021-06-13 11:30 | disposition home or self-care (01) ==
LOC: HO.US 11:29
PROVIDERS: PCP Nurse Practitioner Family; Visit Provider Obstetrics & Gynecology
DX: O24.419 Gestational diabetes mellitus in pregnancy, unspecified control (principal)
CPT/HCPCS: 76816

== ENCOUNTER → 2021-06-16 15:38 | Outpatient (BNVA) | payer MEDICAID, SELFPAY | PROVIDERS: PCP Nurse Practitioner Family; Visit Provider Obstetrics & Gynecology | DX: O24.410 Gestational diabetes mellitus in pregnancy, diet controlled (principal); Z3A.34 34 weeks gestation of pregnancy | CPT/HCPCS: 81003; 99212 ==

== ENCOUNTER 2021-07-02 12:43 | Outpatient (REF) | payer MEDICAID, SELFPAY | END 2021-07-02 12:44 | disposition home or self-care (01) | LOC: HO.LAB 12:43 | PROVIDERS: PCP Nurse Practitioner Family; Visit Provider Obstetrics & Gynecology | DX: O24.419 Gestational diabetes mellitus in pregnancy, unspecified control (principal); Z3A.36 36 weeks gestation of pregnancy | CPT/HCPCS: 87081; 87147; 90471; 99212 ==

== ENCOUNTER 2021-07-04 14:33 | Outpatient (REF) | payer MEDICAID, SELFPAY ==
--- NOTE | ~2021-07-04 | US_ITS ---
EXAMINATION: OBSTETRICAL ULTRASOUND, Follow up HISTORY: 30-year-old at the 36.5 weeks of gestation Gestational diabetes High BMI COMPARISON: 06/13/2021 TECHNIQUE: Real time transabdominal imaging with color and M-mode Doppler. PRESENTATION: Vertex PLACENTA LOCATION: Posterior without previa AMNIOTIC FLUID: PRINCE 12.2 cm MEASUREMENTS: 1. Biparietal Diameter: 8.7 cm; 35.1 wks 2. Head Circumference: 31.7 cm; 35.5 wks 3. Abdominal Circumference: 31.2 cm; 35.1 wks 4. Femur Length: 6.98 cm; 35.6 wks 5. Heart Rate: 160 beats per minute WEIGHT: EFW: 2657 grams (5 lbs 14 oz) -- 21 %. BIOPHYSICAL PROFILE: Motion: 2 Tone: 2 Breathin Amniotic Fluid: 2 Total score: 8/8 GESTATIONAL AGE: 1. Established GA: 36.5 wks 2. GA from AUA: 35.4 wks ESTIMATED DATE OF DELIVERY: 1. Established MAURICE: 07/27/2021 2. MAURICE from [facility]: 08/04/2021 US/US OB follow up IMPRESSION: 1. A single active fetus is in vertex presentation 2. Size equals dates 3. Reassuring biophysical profile with normal PRINCE. She reports that her postprandial values are starting to rise above 120. I reviewed her diet and she is consuming more carbs first neck than before. It is not uncommon for gestational diabetes to worsen with increasing gestational age. I advised her to try snacks that are higher in protein with less carbohydrate content. In the meantime, consider starting metformin if her postprandial values remain consistently elevated. Gave her reassurance regarding the estimated weight and the amniotic fluid index. She has a weekly follow-up scheduled. Thank you very much for this referral. Total time 30 minutes. The time spent was devoted to counseling the patient about the disease and diagnosis, coordinating care including reviewing her records, pertinent lab data and studies, as well as discussing diagnostic evaluation and workup, plan therapeutic interventions and future disposition of care. This includes any additional research needed to obtain further information in formulating the plan of care of this patient. This note was generated with a voice recognition program. Please excuse any errors which may have been overlooked during my review of this note. Sometimes these errors may affect the content or meaning of a given sentence.
== END 2021-07-04 14:34 | disposition home or self-care (01) ==
LOC: HO.US 14:33
PROVIDERS: PCP Nurse Practitioner Family; Visit Provider Obstetrics & Gynecology
DX: E66.9 Obesity, unspecified (principal)
CPT/HCPCS: 76816

== ENCOUNTER → 2021-07-08 08:56 | Outpatient (BNVA) | payer MEDICAID, SELFPAY | PROVIDERS: PCP Nurse Practitioner Family; Visit Provider Advanced Practice Midwife | DX: O24.410 Gestational diabetes mellitus in pregnancy, diet controlled (principal); Z3A.37 37 weeks gestation of pregnancy | CPT/HCPCS: 59025; 99212 ==

== ENCOUNTER 2024-03-20 08:39 | Outpatient (AMB) | payer OTHER, SELFPAY ==
[2024-03-20 09:16] VITALS: BP 132/70; BMI 36.7
--- NOTE | 2024-03-20 09:16 | A.OFFVIS_ITS ---
Vital Signs 03/20/24 09:16 Height 5 ft Weight 188 lb BMI 36.7 BP 132/70 Intake Visit Reasons: vaginal discharge Salesperson Books Required: No Information Interpreted: clinical only Aegis Operations Specialist: Aegis Operations Specialist Present Allergies blueberry Allergy (Verified 03/20/24 09:16) Anaphylaxis hamilton Allergy (Verified 03/20/24 09:16) Anaphylaxis strawberry Allergy (Verified 03/20/24 09:16) Anaphylaxis Is last menstrual period known: Yes Last menstrual period: 03/18/24 HPI HPI vaginal discharge: Details: Vaginal discharge checked she feels it would may have been consistent with bact erial vaginosis could she has a before but she wants to get checked for STDs she had sex 1 time with someone and the condom broke so she wants full STD checks as well. She was asking for test just to be doubly sure but she got her period on Wednesday and is slowing down now. She absolutely does not want control because she is very clear that she intends to be abstinent from this poi nt forward then she declines Plan B as well. She has a history of PCOS and she has a lost weight in the interim she has a 2-year-old who is almost 3 she had gestational diabetes when she was with her. She spent a year with her daughter out on [employer]. And then she serve times and is now on pre release and wears an ankle bracelet and works. She says she has learned a lot and she made the experience work for her and she sees herself as on a Path. She says she called for this visit also because she had some leaking from her breast she did nurse her baby for 3 months and did a lot of pumping because the baby had trouble latching. This period was also late by about a week and that is when she looked down on her nipple and so moisture and she squeezed out a little clear liquid came out that was before her period finally came. She is scheduled for an annual exam coming up. She has a history of abnormal Pap PAM 1 and so she needs follow-up Pap. 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 She says she has support because she has a Village around her that has helped her. [facility] Medical History PAM I (cervical intraepithelial neoplasia I) PCOS (polycystic ovarian syndrome) Asthma Family History Mother HTN (hypertension) Father CAD (coronary artery disease) Maternal Grandmother Diabetes 1.5, managed as type 2 Maternal Grandfather Hx of diabetes mellitus Paternal Grandmother CAD (coronary artery disease) Sister No problems noted. 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 Sexual orientation: Straight/Heterosexual Gender identity: Female Female Reproductive History Menstrual Age of Menarche: 9 Duration of menses: 3-5 days Date of last menstrual period: 03/18/24 control method: none Total pregnancies: 1 Full term: 1 Date of last pap smear: 01/14/21 (NEG) History of abnormal pap smear: Yes (2013,PAM I) Physical Exam Vital Signs: Last Vital Signs BP 132/70 03/20/24 09:16 BMI result Body Mass Index 36.7 Chest Other: No nipple discharge appreciated today, Chest palpation & inspection: normal inspection of the chest Breast/axilla inspection: normal inspection of the breasts and normal inspection of the axillae Breast/axilla palpation: normal palpation of the breasts and normal palpation of the axillae Other: Normal speculum exam patient has menses cervix pink healthy appearing with menses no abnormal discharge appreciated because of the menses we will await testing for gonorrhea chlamydia trichomoniasis Gardnerella and Homa discussed that Gardnerella often is present in the presence of blood. Patient also cited cramps for her. Finally came. Currently cervix mobile nontender uterus midposition mobile nontender adnexa non tender good tone. Results Reviewed Results Reviewed: Name: Cristina Miranda Age/Sex: 30 Attending: Nubia Conway CNM : 1990 Submitted by: Nubia Conway CNM Copies to: [facility] MR #: [id number] Status: DEP REF Collected: 01/13/21 Location: .LAB Received: 01/14/21 Interpretation Satisfactory for evaluation. Negative for intraepithelial lesion or malignancy. Coccobacilli consistent with shift in vaginal erin. Clinical Information LMP: Previous PAP test: 2015, abnormal Other history: Unsure date Material Received ThinPrep cervical Copies To [facility] [address] [place] [address] [phone] Nubia Conway CNM [address] [place] [address] [place] [address] Electronically Signed By: Lisha Huerta 01/21/21 [id number] The Pap Test is a screening procedure with the inherent possibility of both false negative and false positive results. Results should be interpreted in the context of historic and current clinical findings. Reliability of the Pap Test is enhanced by performing the test on a regular repetitive basis. Patient: Denys Page 1 of 1 Assessment & Plan Assessment & Plan (1) PAM I (cervical intraepithelial neoplasia I): Comment: pap done 01/13=neg, ( done too early- see MZ note of 08/05/20 --cotest 08/16). Code(s): N87.0 - Mild cervical dysplasia Category: Medical (2) History of PCOS: Code(s): Z87.42 - Personal history of other diseases of the female genital tract Category: Medical (3) Encounter for screening examination for sexually transmitted disease: Code(s): Z11.3 - Encounter for screening for infections with a predominantly sexual mode of transmission Category: Medical (4) Contraceptive education: Code(s): Z30.09 - Encounter for other general counseling and advice on contraception Category: Medical (5) Nipple discharge: Comment: None appreciated today leaking was clear during a week before late menses history of PCOS relationship to nursing history discussed... Code(s): N64.52 - Nipple discharge Category: Medical Plan Vaginal discharge checked she feels it would may have been consistent with bacterial vaginosis could she has a before but she wants to get checked for STDs she had sex 1 time with someone and the condom broke so she wants full STD checks as well. She was asking for test just to be doubly sure but she got her period on Wednesday and is slowing down now. She absolutely does not want control because she is very clear that she intends to be abstinent from this point forward then she declines Plan B as well. She has a history of PCOS and she has a lost weight in the interim she has a 2-year-old who is almost 3 she had gestational diabetes when she was with her. She spent a year with her daughter out on bail. And then she serve times and is now on pre release and wears an ankle bracelet and works. She says she has learned a lot and she made the experience work for her and she sees herself as on a Path. She says she called for this visit also because she had some leaking from her breast she did nurse her baby for 3 months and did a lot of pumping because the baby had trouble latching. This period was also late by about a week and that is when she looked down on her nipple and so moisture and she squeezed out a little clear liquid came out that was before her period finally came. She is scheduled for an annual exam coming up. She has a history of abnormal Pap PAM 1 and so she needs follow-up Pap. 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 She says she has support because she has a Village around her that has helped her. Testing ordered as she requested she will try to get results in the portal and if she can not I recommend she call within 2 days to get the results for her own peace of mind. She is not interested in Plan B or any other method of control at this time she is planning to be abstinent and condoms would be her backup. She is scheduled for her annual exam and she needs her follow-up Pap then. Discussed the relationship to wait and irregular menses and also nipple discharge in elevated prolactin and that it is possible to leak for significant amount of time after nursing as well. For now I recommend she keep an eye on things there was no leaking appreciated today but I did not squeeze the nipples either I do not recommend squeezing that continually stimulates breast function. Discussed connection between PCOS and elevated prolactin and if she did gain weight and miss her menses again that that would be something to look into again. Orders: Orders AMB HCG Urine Test Today Z32.02 - Encounter for test, result negative Bacterial Vaginosis Panel Today N94.89 - Other specified conditions associated with female genital organs and menstrual cycle CT NG by PCR Today N89.8 - Other specified noninflammatory disorders of vagina, Z20.2 - Contact with and (suspected) exposure to infections with a predominantly sexual mode of transmission Syphilis Screen Today N87.0 - Mild cervical dysplasia, Z87.42 - Personal history of other diseases of the female genital tract Hepatitis B Surface Antigen Today N87.0 - Mild cervical dysplasia, Z11.3 - Encounter for screening for infections with a predominantly sexual mode of transmission, Z87.42 - Personal history of other diseases of the female genital tract Hepatitis C Antibody Today N87.0 - Mild cervical dysplasia, Z87.42 - Personal history of other diseases of the female genital tract HIV Ab/Ag Today N87.0 - Mild cervical dysplasia, Z87.42 - Personal history of other diseases of the female genital tract Coding Level of Care Code Est Pt Level 3 (52323) Diagnoses PAM I (cervical intraepithelial neoplasia I) N87.0 History of PCOS Z87.42 Encounter for screening examination for sexually transmitted disease Z11.3 Contraceptive education Z30.09 Nipple discharge N64.52
== END 2024-03-20 10:16 | disposition home or self-care (01) ==
PROVIDERS: Visit Provider Advanced Practice Midwife
DX: N87.0 Mild cervical dysplasia (principal); Z87.42 Personal history of other diseases of the female genital tract; Z30.09 Encounter for other general counseling and advice on contraception; N64.52 Nipple discharge
CPT/HCPCS: 99214

== ENCOUNTER 2024-03-20 08:39 | Outpatient (REF) | payer OTHER, SELFPAY ==
[2024-03-21 05:54] LABS: CT PCR NOT DETECTED (Not Detect.); NG PCR NOT DETECTED (Not Detect.)
[2024-03-21 09:41] LABS: Bacterial Vaginosis PCR POSITIVE (Negative); Candida Group PCR NOT DETECTED (Not Detect); Candida glab krusei PCR NOT DETECTED (Not Detect); Trichomonas vaginalis PCR NOT DETECTED (Not Detect)
== END 2024-03-20 08:40 | disposition home or self-care (01) ==
LOC: HO.LAB 08:39
PROVIDERS: Visit Provider Advanced Practice Midwife
DX: N94.89 Other specified conditions associated with female genital organs and menstrual cycle (principal); Z20.2 Contact with and (suspected) exposure to infections with a predominantly sexual mode of transmission; N89.8 Other specified noninflammatory disorders of vagina; N87.0 Mild cervical dysplasia; Z87.42 Personal history of other diseases of the female genital tract; Z11.3 Encounter for screening for infections with a predominantly sexual mode of transmission; N64.52 Nipple discharge
CPT/HCPCS: 0352U; 87491; 87591; 99212

== ENCOUNTER 2024-03-20 10:21 | Outpatient (REF) | payer OTHER, SELFPAY ==
[2024-03-21 04:26] LABS: Syphilis Screen Nonreactive (Nonreactive)
[2024-03-21 04:37] LABS: HBsAGNum1 0.28 S/CO (0.00-0.99); HIV AB/AG Nonreactive (Nonreactive); HIV Num 1 0.04 S/CO (0.00-0.99); Hepatitis B Surface Antigen Negative (Negative); ~HepC Num1 0.12 S/CO (0.00-0.79); ~Hepatitis C Antibody Nonreactive (Nonreactive)
== END 2024-03-20 10:22 | disposition home or self-care (01) ==
LOC: HO.HHCL 10:21
PROVIDERS: Visit Provider Advanced Practice Midwife
DX: N87.0 Mild cervical dysplasia (principal); Z11.3 Encounter for screening for infections with a predominantly sexual mode of transmission; Z87.42 Personal history of other diseases of the female genital tract
CPT/HCPCS: 36415; 86780; 86803; 87340; 87389

== ENCOUNTER 2024-09-13 08:51 | Outpatient (AMB) | payer OTHER, SELFPAY ==
--- NOTE | 2024-09-13 08:54 | A.OFFVIS_ITS ---
Intake Visit Reasons: control consult Slurry Plant Operator: Slurry Plant Operator Present (Radha) Accompanied by: Self / Same As Patient Allergies blueberry Allergy (Verified 09/13/24 08:56) Anaphylaxis hamilton Allergy (Verified 09/13/24 08:56) Anaphylaxis strawberry Allergy (Verified 09/13/24 08:56) Anaphylaxis Is last menstrual period known: Yes Last menstrual period: 08/17/24 (5 days) HPI Comments Details: Presenting to discuss different method of control Last Pap smear was on 01/13 was negative [facility] Medical History PAM I (cervical intraepithelial neoplasia I) PCOS (polycystic ovarian syndrome) Asthma Family History Mother HTN (hypertension) Father CAD (coronary artery disease) Maternal Grandmother Diabetes 1.5, managed as type 2 Maternal Grandfather Hx of diabetes mellitus Paternal Grandmother CAD (coronary artery disease) Sister No problems noted. 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 Sexual orientation: Straight/Heterosexual Gender identity: Female Female Reproductive History Menstrual Age of Menarche: 9 Date of last menstrual period: 08/17/24 (5 days) Review of Systems Const All systems reviewed & are unremarkable except as noted in HPI and below Reports as per HPI and Reports no additional complaints GI Reports no additional complaints Reports no additional complaints Assessment & Plan Assessment & Plan (1) Family planning: Code(s): Z30.09 - Encounter for other general counseling and advice on contraception Category: Social Hx Plan: Discussed with the patient the different options of control including control pills/Nuvaring, Depo Medroxy Progesterone Acetate, IUD ( levonorgestrel, Copper), sterilization. All the pros, cons, risks and benefits of each were discussed with the patient. The patient decided to go ahead with [facility] continuously so a more detailed discussion re: control pills including mechanism of action, benefits (regular menses, less dysmenorrhea, less risk of ovarian cancer, ...), risks ( DVT, PE, Strokes, CT, increased breast ca, others). Instructions were given to use a back- up method for contraception x 1st 2 weeks, and to schedule a 3 months appointment for blood pressure check. Prescription sent to the patient's pharmacy for seasonique tablet p.o. q.d. for 84 days in 1 week off. Medications: New L norgest/e.estradiol-e.estrad 0.15 mg-30 mcg (84)/10 mcg (7) 1 tab PO DAILY 84 days 84 ea 0RF Discontinued levonorgestrel (Plan B One-Step) Discontinued Reason: Doctor's Order 1.5 mg PO ONCE 1 tab 4RF Coding Level of Care Code Est Pt Level 3 (56788) Diagnoses Family planning Z30.09
== END 2024-09-13 09:19 | disposition home or self-care (01) ==
LOC: HO.HWS 08:51
PROVIDERS: Visit Provider Obstetrics & Gynecology
DX: Z30.09 Encounter for other general counseling and advice on contraception (principal)
CPT/HCPCS: 99213

== ENCOUNTER → 2024-09-13 08:51 | Outpatient (BNVA) | payer OTHER, SELFPAY | PROVIDERS: Visit Provider Obstetrics & Gynecology | DX: Z30.09 Encounter for other general counseling and advice on contraception (principal) | CPT/HCPCS: 99212 ==

== ENCOUNTER 2024-12-13 08:31 | Outpatient (REF) | payer OTHER, SELFPAY ==
--- OUTSIDE RECORDS SUMMARY | 2024-12-13 10:17 | XMS_ITS | Clinical Summary ---
Author Organization [employer] Address [address] [facility] [address] [place] [address] Care Team Providers Care Physical Testing Supervisor Name Role Phone [place], Ila Unavailable Unavailable Provider, Not In System Primary Care Provider Un available Allergies Active Allergy Reactions Criticality Noted Date Comments Other Anaphylaxis High 01/21/2023 Stawberries, Cherries, Berries Medications albuterol (ProAir HFA) 108 (90 Base) MCG/ACT inhaler 2 puffs. 7 Active clindamycin (Clindagel) 1 % gel 1 application in the morning and 1 application in the evening. 6 Active EPINEPHrine (EpiPen 2-Moses) 0.3 MG/0.3ML injection syringe as directed Injection PRN for 30 days 5 Active famotidine (Pepcid) 20 MG tablet 1 tablet in the morning and 1 tablet in the evening. 0 Active fluticasone (Flonase Allergy Relief) 50 MCG/ACT nasal spray 1 spray in the morning. 7 Active loratadine (Claritin) 10 MG tablet 1 tablet in the morning. Active meclizine (Antivert) 25 MG tablet 1 tablet. Active norethindrone-e thinyl estradiol (Microgestin 08/14) 1-20 MG-MCG tablet 1 tablet in the morning. 0 Active Immunizations Immunization Administration Dates Next Due DTaP 11/24/1995, 3,06/25/1992,04/25/1992,0 01/24/1992 HPV 9-Valent 06/19/2008,02/24/2008,09/02/2007 Hep A, Adult 10/26/2013,12/08/2012 Hep B, Adolescent or Pediatric 04/25/1996,1995,11/24/1995 Hib (PRP-T) 01/23/1993,06/25/1992,04/25/1992 ,01/24/1992 IPV 11/24/1995,03/26/1993,04/25/1992 ,01/24/1992 Influenza, IIV3, injectable 05/24/2018, 7,04/11/2013,06/19/2008 MMR 05/26/1993,10/24/1992 Meningococcal MCV4P [id number] 09/02/2007 PPD Test 05/03/2015 Tdap 12/09/2012 Varicella 11/28/2012 Family History Medical History Relation Name Comments Coronary artery disease Father Has stent Hypertension Father Diabetes Maternal Grandmother Hypertension Mother ORLIN Mother Cataracts Neg Hx Glaucoma Neg Hx Macular degeneration Neg Hx Relation Name Status Comments Father Alive Maternal Grandmother Mother Social History Tobacco Use Types Packs/Day Years Used Date Smoking Tobacco: Never Tobacco Cessation:Counseling Given: Not Answered Comments Unknown Sex and Gender Information Value Date Recorded Sex Assigned at Female 05/27/2022 4:11 PM EDT Legal Sex Female 8:37 PM EDT Gender Identity Not on file Sexual Orientation Straight 05/27/2022 4: 11 PM EDT Last Filed Vital Signs Vital Sign Reading Time Taken Comments Blood Pressure 118/90 06/14/2020 11:30 AM EST Pulse 90 06/14/2020 11:30 AM EST Temperature - - Respiratory Rate - - Oxygen Saturation 98% 06/14/2020 11:30 AM EST Inhaled Oxygen Concentration - - Weight 83 kg (183 lb) 06/14/2020 11:30 AM EST Height 152.4 cm (5') 06/14/2020 11:30 AM EST Body Mass Index 35.74 06/14/2020 11:30 AM EST Plan of Treatment Health Maintenance Due Date Last Done Comments Depression Screening 1991 SDOH Screening 1991 Disability Screening 1991 Alcohol/Substance Use Screening 2003 Family Planning (PISQ) 11/05/2006 Pneumococcal Vaccine: Pediatrics (0 to 5 Years) and At-Risk Patients (6 to 49) Years) (1 of 2 - PCV) 11/05/2010 Pap Smear 11/05/2012 Cervical Cancer Screening 11/05/2021 HPV/Cotest 11/05/2021 DTaP/Tdap/Td Vaccines (7 - Td or Tdap) 12/09/2022 12/09/2012, 11/24/1995, 03/26/1993, Additional history exists Tobacco Screening 01/22/2024 01/21/2023 COVID-19 Vaccine (1 - season) 2024 Influenza Vaccine (#1) 2024 8, 05/12/2017, 04/11/2013, Additional history exists Zoster Vaccines (1 of 2) 11/05/2041 RSV Patients and Patients Aged 60 years or older (1 - 1-dose 75+ series) 11/05/2066 HIB Vaccines Completed 01/23/1993, 07/1991, 04/25/1992, Additional history exists IPV Vaccines Completed 11/24/1995, 07/1992, 04/25/1992, Additional history exists Hepatitis B Vaccines Completed 04/25/1996, 01/24/1996, 11/24/1995 Meningococcal Vaccine Aged Out 09/02/2007 No elysia amie eligible based on patient's age to complete this topic HPV Vaccines Completed 06/19/2008, 07/2007, 09/02/2007 Hepatitis A Vaccines Aged Out 10/26/2013, 12/09/19 13 No longer eligible based on patient's age to complete this topic Hepatitis C Screening Completed 05/23/2019 HIV Screening Completed 05/24/2019 Meningococcal B Vaccine Aged Out No l onger eligible based on patient's age to complete this topic RSV under 20 months Aged Out No longe r eligible based on patient's age to complete this topic Rotavirus Vaccines Aged Out No longer eligible based on patient's age to complete this topic Procedures Procedure Name Priority Date/Time Associated Diagnosis Comments HIV-1 ANTIBODY, EIA Routine 05/24/2019 HEPATITIS C ANTIBODY (EXTERNAL RESULTS ONLY) Routine 05/23/2019 1:15 PM EDT from Last 3 Months or Most Recently Relevant to Health Maintenance Results * HIV-1 antibody, EIA (05/24/2019) External HIV-1 Antibody Negative Blood Venous blood specimen / Unknown Historical Provider MD LAB BLOOD ORDERABLES Cassandra l Result * Hepatitis C Antibody (05/23/2019 1:15 PM EDT) Hepatitis C Antibody Nonreactive Blood 05/23/2019 1:15 PM EDT Mariama Rodríguez HEALTH INFORMATION CODER POINT OF CARE TEST ENT ER/EDIT ORDERABLES Final Result from Last 3 Months or Most Recently Relevant to Health Maintenance Insurance [facility] Care Teams Physical Testing Supervisor Relationship Specialty Start Date End Date Provider, Not In System PCP - General Family Medicine 08/29/24 Ila Ram Community Health Worker 11/25/22
[2024-12-13 11:53] LABS: HBsAGNum1 0.38 S/CO (0.00-0.99); HIV AB/AG Nonreactive (Nonreactive); HIV Num 1 0.07 S/CO (0.00-0.99); Hepatitis B Surface Antigen Negative (Negative); Syphilis Screen Nonreactive (Nonreactive); ~HepC Num1 0.09 S/CO (0.00-0.79); ~Hepatitis C Antibody Nonreactive (Nonreactive)
[2024-12-13 12:22] LABS: CT PCR NOT DETECTED (Not Detect.); NG PCR NOT DETECTED (Not Detect.)
[2024-12-13 14:39] LABS: Bacterial Vaginosis PCR POSITIVE (Negative); Candida Group PCR NOT DETECTED (Not Detect); Candida glab krusei PCR NOT DETECTED (Not Detect); Trichomonas vaginalis PCR NOT DETECTED (Not Detect)
[2024-12-20 07:55] LABS: HPV Genotype 16 Negative (Negative); HPV Genotype 18 Negative (Negative); HPV High Risk Negative (Negative)
== END 2024-12-13 08:32 | disposition home or self-care (01) ==
LOC: HO.LAB 08:31
PROVIDERS: Visit Provider Obstetrics & Gynecology
DX: Z01.419 Encounter for gynecological examination (general) (routine) without abnormal findings (principal); Z11.51 Encounter for screening for human papillomavirus (HPV); Z11.3 Encounter for screening for infections with a predominantly sexual mode of transmission; Z20.2 Contact with and (suspected) exposure to infections with a predominantly sexual mode of transmission
CPT/HCPCS: 81515; 86780; 86803; 87340; 87389; 87491; 87591; 87626; 88175; 99395; 99459

== ENCOUNTER 2024-12-13 08:31 | Outpatient (AMB) | payer OTHER, SELFPAY ==
[2024-12-13 08:39] VITALS: BP 112/82; BMI 33.2
--- NOTE | 2024-12-13 08:39 | A.OFFVIS_ITS ---
Vital Signs 12/13/24 08:39 Height 5 ft Weight 170 lb BMI 33.2 BP 112/82 Intake Visit Reasons: annual/ control follow up Intake Note: Wants STD screen and refills on control pills Lpn Medical Assistant Required: No Information Interpreted: non-clinical & clinical Human Resources Receptionist: Human Resources Receptionist Present (Sarah Henley LON) Accompanied by: Self / Same As Patient Allergies blueberry Allergy (Verified 12/13/24 08:42) Anaphylaxis hamilton Allergy (Verified 12/13/24 08:42) Anaphylaxis Latex, Natural Rubber Allergy (Verified 12/13/24 08:42) Rash strawberry Allergy (Verified 12/13/24 08:42) Anaphylaxis Is last menstrual period known: Yes Last menstrual period: 11/27/24 HPI Comments Details: Presenting for annual exam. No complaints. Requesting STD screening Last Pap was negative in 01/13 [facility] Medical History PAM I (cervical intraepithelial neoplasia I) PCOS (polycystic ovarian syndrome) Asthma Family History Mother HTN (hypertension) Father CAD (coronary artery disease) Maternal Grandmother Diabetes 1.5, managed as type 2 Maternal Grandfather Hx of diabetes mellitus Paternal Grandmother CAD (coronary artery disease) Sister No problems noted. Social History Household Members Other:: daughter Both parents involved: Yes Housing: Apartment Alcohol intake: former Patient Tobacco Use Status: Former Tobacco user Tobacco use type: Cigarette Years Smoked: 1 Special kelli needs: No Agree to transfusion: Yes Current occupational status: employed Current occupation: [employer] Sexually active: No Sexual orientation: Straight/Heterosexual Gender identity: Female Female Reproductive History Menstrual Age of Menarche: 9 Date of last menstrual period: 11/27/24 control method: pills Total pregnancies: 1 Full term: 1 Number of Living Children: 1 Review of Systems Const All systems reviewed & are unremarkable except as noted in HPI and below Card Reports as per HPI Resp Reports as per HPI GI Reports as per HPI and Reports no additional complaints Reports as per HPI Physical Exam Vital Signs: Last Vital Signs BP 112/82 12/13/24 08:39 BMI result Body Mass Index 33.2 Const General: cooperative, healthy appearing and comfortable Chest Chest palpation & inspection: normal inspection of the chest and normal palpation of entire chest wall Breast/axilla inspection: normal inspection of the breasts and normal inspection of the axillae Breast/axilla palpation: normal palpation of the breasts, normal palpation of the axillae and no axillary lymphadenopathy Resp Effort & Inspection: normal respiratory effort Auscultation: clear to auscultation bilaterally Percussion: percussion normal Cardio Palpation: normal PMI Rate: regular rate Rhythm: regular rhythm Heart sounds: no murmurs and no rubs Peripheral pulses: Peripheral pulses 2+ throughout GI Inspection: Yes normal to inspection Palpation (GI): Soft to palpation, nontender, no guarding, not rigid and No hepatosplenomegaly present Percussion: Yes normal to percussion Auscultation: normal bowel sounds Rectal Exam - Female: deferred General: Yes bladder normal to palpation External Female Exam: No lesion Speculum Exam - Vagina: normal appearance of the vagina, normal palpation, normal vaginal discharge and not erythematous Speculum Exam - Cervix: normal appearance of the cervix and normal palpation Bimanual exam- vagina & uterus: normal bimanual exam, normal palpation, uterine size normal, bladder normal to palpation, consistency normal and normal palpation Bimanual Exam- Adnexa, other: normal adnexae, no masses and no tenderness Assessment & Plan Assessment & Plan (1) Well woman exam: Code(s): Z01.419 - Encounter for gynecological examination (general) (routine) without abnormal findings Category: Medical Plan: Cotesting done. control pills refill sent Counseled the patient about the recommended dietary allowance of 1000 mg of Calcium & 600 IU of vitamin D. The patient was instructed to perform monthly self-breast exams and to schedule an annual exam in a year; All questions answered and the patient verbalized understanding. Instructed the patient to schedule annual exam in a year (2) Encounter for screening examination for sexually transmitted disease: Code(s): Z11.3 - Encounter for screening for infections with a predominantly sexual mode of transmission Category: Medical Plan: STD screening tests done includes: BV panel for trichomonas, GC/CT will send patient for serology std screening for HIV, RPR, Hep b s Ag, HepC Ab. Instructions given the patient to schedule a follow-up appointment for repeat serology screen in 6 months for possible false negatives. Orders: Orders HIV Ab/Ag Today Z20.2 - Contact with and (suspected) exposure to infections with a predominantly sexual mode of transmission Hepatitis B Surface Antigen Today Z20.2 - Contact with and (suspected) exposure to infections with a predominantly sexual mode of transmission Hepatitis C Antibody Today Z20.2 - Contact with and (suspected) exposure to i nfections with a predominantly sexual mode of transmission Syphilis Screen Today Z20.2 - Contact with and (suspected) exposure to infections with a predominantly sexual mode of transmission Medications: Refilled L norgest/e.estradiol-e.estrad 0.15 mg-30 mcg (84)/10 mcg (7) 1 tab PO DAILY 84 days 84 ea 3RF Coding Level of Care Code Est Pt Prev Care 18-39y(26151) Diagnoses Well woman exam Z01.419 Encounter for screening examination for sexually transmitted disease Z11.3
== END 2024-12-13 09:01 | disposition home or self-care (01) ==
LOC: HO.HWS 08:32
PROVIDERS: Visit Provider Obstetrics & Gynecology
DX: Z01.419 Encounter for gynecological examination (general) (routine) without abnormal findings (principal)
CPT/HCPCS: 99395; 99459